=== PATIENT | female | born 1945 | race Hispanic/Latino ===

== ENCOUNTER 2017-01-08 08:25 | Emergency (ER) | payer MEDICARE ==
--- NOTE | 2017-01-08 09:41 | RAD ---
LEFT KNEE FOUR VIEWS: History: Pain. Patient fell yesterday. Comparison: None. FINDINGS: Suprapatellar effusion. There is diffuse bone demineralization. There is mild to moderate tricompart ment degenerative change. No fracture. IMPRESSION: Joint effusion. No fracture. POS: [facility]
[2017-01-08] MEDS ORDERED: Ibuprofen 200 MG TAB ONE (10:03)
== END 2017-01-08 10:07 | disposition home or self-care (01) ==
LOC: NAV ERS 08:25
DX: S89.92XA Unspecified injury of left lower leg, initial encounter (principal); E03.9 Hypothyroidism, unspecified; I10 Essential (primary) hypertension; Z79.899 Other long term (current) drug therapy; W19.XXXA Unspecified fall, initial encounter

== ENCOUNTER 2019-01-28 08:42 | Outpatient (CLI) | payer MEDICARE ==
--- NOTE | 2019-01-28 09:59 | RAD ---
CHEST 2 VIEWS: HISTORY: Cough and wheezing. COMPARISON: 11/05/2017. FINDINGS: Cardiac silhouette is unremarkable. Pulmonary vasculature is slightly engorged. Widespread reticulo nodular interstitial prominence and shallow inspiration. Elevation of the right hemidiaphragm is unc hanged. Mediastinum is midline with aortic calcification. No evidence of pneumothorax. IMPRESSION: 1. Pulmonary vascular congestion. 2. Atherosclerosis. POS: [facility]
== END 2019-01-28 08:43 | disposition home or self-care (01) ==
LOC: NAV RAD 08:42
PROVIDERS: ATTEND Internal Medicine
DX: R06.2 Wheezing (principal); I70.90 Unspecified atherosclerosis; R09.89 Other specified symptoms and signs involving the circulatory and respiratory systems
CPT/HCPCS: 71046

== ENCOUNTER 2019-12-18 16:06 | Emergency (ER) | payer MEDICARE ==
[2019-12-18] MEDS ORDERED: methylPREDNISolone Sod Succ/PF 125 MG/2 ML VIAL ONE (16:37)
[2019-12-18] MEDS ORDERED: diphenhydrAMINE 50 MG/ML VIAL ONE (16:37)
[2019-12-18] MEDS ORDERED: Famotidine/PF 20 mg/2ml Vial ONE (16:37)
== END 2019-12-18 18:15 | disposition home or self-care (01) ==
LOC: NAV ERS 16:06
DX: R21 Rash and other nonspecific skin eruption (principal); E03.9 Hypothyroidism, unspecified; I10 Essential (primary) hypertension; Z79.899 Other long term (current) drug therapy
CPT/HCPCS: 94760; 96374; 96375; J1200; J2930; S0028

== ENCOUNTER 2020-04-12 13:23 | Emergency (ER) | payer MEDICARE, OTHER ==
--- NOTE | 2020-04-12 14:12 | RAD ---
CHEST 2 VIEWS: Date: 04/12/2020 HISTORY: Cough. COMPARISON: 01/28/2019. FINDINGS: Moderate bilateral linear and interstitial and reticulonodular parenchymal changes throughout both jayleen ngs, showing little change from the prior exam, favored to represent some chronic nonspecific interst itial lung disease. No confluent pneumonia. No pleural effusion. IMPRESSION: 1. Overall stable bilateral linear, interstitial, and reticulonodular pulmonary parenchymal changes without evidence for confluent pneumonia or significant pleural effusion. 2. Atherosclerosis of aorta. POS: [facility]
[2020-04-13 18:53] LABS: SARS-CoV-2 MS2 Positive; SARS-CoV-2 N Gene Negative; SARS-CoV-2 S Gene Negative; SARS-CoV-2 by NAA Not Detected (NotDetected); SARS-CoV-2 orf1ab Negative
== END 2020-04-12 14:17 | disposition home or self-care (01) ==
LOC: NAV ERS 13:23
DX: J45.909 Unspecified asthma, uncomplicated (principal); Z20.828 Contact with and (suspected) exposure to other viral communicable diseases; I10 Essential (primary) hypertension; E03.9 Hypothyroidism, unspecified; Z79.899 Other long term (current) drug therapy
CPT/HCPCS: 71046; 87635; U0003

== ENCOUNTER 2021-03-04 13:30 | Outpatient (CLI) | payer MEDICARE | END 2021-03-04 13:31 | disposition home or self-care (01) | LOC: NAV RAD 13:30 | PROVIDERS: ATTEND Nurse Practitioner Adult Health | DX: J45.51 Severe persistent asthma with (acute) exacerbation (principal) | CPT/HCPCS: 71046 ==